=== PATIENT | female | born 1955 | race Hispanic/Latino ===

== ENCOUNTER → 2017-10-26 | Outpatient (CLI) | payer OTHER ==
--- NOTE | 2017-10-26 14:51 | Diagnostic Imaging Report ---
EXAM: Complete Abdominal Ultrasound. INDICATION: ABDOMINAL PAIN. COMPARISON: None. TECHNIQUE: Transverse and longitudinal images of the upper abdomen were obtained. FINDINGS: Liver: Size: 15.3 cm in the right midclavicular line, normal Appearance: Increased echogenicity, smooth contour Mass: No focal masses Spleen: Size: 10.2 cm in length, normal Echogenicity: Normal Mass: No focal masses Gallbladder: Limited evaluation due to decompression. Stones/Sludge: None. Nonmobile punctate nonshadowing echogenic focus along the gallbladder wall may represent a tiny cholesterol polyp. Wall: 0.4 cm Appearance: No wall thickening, pericholecystic fluid or hydrops. Sonographic Urbina's Sign: Negative Bile Ducts: Intrahepatic Ducts: No dilatation Extrahepatic Ducts: Common bile duct measures 0.5 cm, no dilatation Pancreas: Visualized portions of the pancreatic head, neck and proximal body are normal. Kidneys: Length: Right 10.7 cm Left 11.5 cm Echogenicity: Normal Collecting System: No hydronephrosis. Minimal right pelviectasis. Stone: None Cyst/Mass: None Vessels: Aorta: Mostly obscured by shadowing from overlying bowel gas. Inferior Vena Cava: Visualized portions of the distal IVC are unremarkable. Main Portal Vein: 1.2 cm, normal size with hepatopetal flow. Free Fluid: No ascites or pleural effusion IMPRESSION: Increased echogenicity of the hepatic parenchyma suggestive of steatosis. Signed by: Dr. Salvador Floyd M.D. on 10/26/2017 2:48 PM
--- NOTE | 2017-10-26 14:56 | Diagnostic Imaging Report ---
EXAM: Transabdominal and Transvaginal Pelvic Ultrasound INDICATION: Pain. COMPARISON: None TECHNIQUE: Grayscale transverse and sagittal transabdominal and transvaginal images were obtained of the pelvis. Transvaginal imaging was medically necessary to better evaluate the endometrium and the adnexa. FINDINGS: Uterus: Surgically absent. Right ovary: Surgically absent. Left ovary: Surgically absent. Cul-de-sac: No free fluid Urinary bladder: Revised volume: 402.7 mL Postvoid volume: 119.4 mL IMPRESSION: 1. Status post total hysterectomy and bilateral salpingo-oophorectomy. 2. Urinary bladder postvoid residual. Signed by: Dr. Salvador Floyd M.D. on 10/26/2017 2:52 PM
== END ==
LOC: US 12:40
PROVIDERS: ATTEND Internal Medicine Gastroenterology
DX: R10.84 Generalized abdominal pain (principal)
CPT/HCPCS: 76700; 76856